=== PATIENT | male | born 1980 | race Hispanic/Latino ===

== ENCOUNTER 2019-03-24 20:45 | Inpatient (IN) | payer SELFPAY ==
[~2019-03-24 20:45] MED LIST: ISOVUE-370 76%-LOCM 1 ML ONE
[2019-03-24 21:07] LABS: #Basophils 0.1 thou/uL (0.0-0.2); #Eosinphils 0.3 thou/uL (0.0-0.7); #Lymphocytes 4.1 thou/uL (1.20-3.40); #Monocytes 1.2 thou/uL (0.11-0.59); #Neutrophils 10.7 thou/uL (1.40-6.50); %Basophils 0.5 % (0.0-1.0); %Lymphocytes 25.1 % (21.0-51.0); %Neutrophils 65.4 % (42.0-75.0); Hemoglobin 13.1 g/dL (14.0-18.0); Mean Corpuscular HGB CONC 35.2 g/dL (32.0-36.0); Mean Corpuscular Hemoglobin 29.8 pg (27.0-31.0); Mean Corpuscular Volume 84.6 fL (78.0-98.0); Mean Platelet Volume 7.8 fL (7.4-10.4); Platelet Count 333 thou/uL (130-400); RBC Distribution Width 11.6 % (11.5-14.5); Red Blood Cell (RBC) Count 4.41 mill/uL (4.70-6.10); White Blood Cell (WBC) Count 16.4 thou/uL (4.8-10.8)
--- NOTE | 2019-03-24 21:10 | RAD ---
Radiograph left humerus 2 views: DATE: 03/24/2019 Time: 8:59 PM HISTORY: 39-year-old male with severe traumatic pain due to fall from tree FINDINGS: Comminuted fracture of the proximal humeral metaphysis, with rotation, sharp angulation, and a signif icant anterior displacement, of the distal fragment (humeral diaphysis) relative to the proximal fragment (the comminuted humeral head). The mid and distal portions of the humerus are intact. IMPRESSION: Acute, traumatic, displaced, comminuted and angulated fracture of left humeral head and neck
[2019-03-24 21:12] LABS: Prothrombin Time 13.6 SEC (12.0-14.7)
[2019-03-24 21:13] LABS: PTT 28.6 SEC (22.9-36.1)
--- NOTE | 2019-03-24 21:15 | CT ---
CT BRAIN NONCONTRAST: DATE: 03/24/2019 HISTORY: 39-year-old male status post acute head trauma due to fall from tree. FINDINGS: There is no evidence of acute intra-axial or extra-axial hemorrhage. There is no midline shift or any other mass effect. There is no extra-axial fluid collection. There is no evidence of obstructive hydrocephalus. Calvarium is intact. IMPRESSION: No acute intracranial findings.
[2019-03-24] MEDS ORDERED: Ondansetron PF 4 MG/2 ML Vial ONE (21:17)
[2019-03-24] MEDS ORDERED: Adacel (T-DAP) 0.5 ML SYRINGE ONE (21:17)
--- NOTE | 2019-03-24 21:19 | CT ---
CT CERVICAL SPINE NONCONTRAST: DATE: 03/24/2019 HISTORY: 39-year-old male status post acute cervical trauma due to fall from tree. FINDINGS: There are no jumped or perched facets. There is no evidence of acute fracture. The vertebral body hei ghts are maintained. There is no prevertebral soft tissue swelling. IMPRESSION: No evidence of acute fracture or acute traumatic subluxation.
[2019-03-24 21:26] LABS: ALT (SGPT) 35 U/L (8-55); AST (SGOT) 47 U/L (5-34); Albumin 4.4 g/dL (3.5-5.0); Alkaline Phosphatase 88 U/L (40-150); Anion Gap 15 mmol/L (10-20); BUN (Urea Nitrogen) 20 mg/dL (8.9-20.6); Bilirubin, Total 0.2 mg/dL (0.2-1.2); Calc. Creatinine Clearance 0 mL/min (70-130); Calcium 8.5 mg/dL (7.8-10.44); Carbon Dioxide 20 mmol/L (22-29); Chloride 108 mmol/L (98-107); Estimated GFR-MDRD 88; Globulin 2.8 g/dL (2.4-3.5); Glucose 128 mg/dL (70-105); Potassium 3.5 mmol/L (3.5-5.1); Protein, Total 7.2 g/dL (6.0-8.3); Sodium 139 mmol/L (136-145)
--- NOTE | 2019-03-24 21:31 | CT ---
CT THORAX WITH CONTRAST CT ABDOMEN WITH CONTRAST CT PELVIS WITH CONTRAST CT THORACIC SPINE WITH CONTRAST CT LUMBAR SPINE WITH CONTRAST: (Trauma protocol) DATE: 03/24/2019 HISTORY: Trauma to the chest, abdomen, and pelvis due to fall from tree in 39-year-old male. Dr. Madrid verbally gave the level 2 trauma results of the CTs of the brain, C-spine, chest, abdomen, an d pelvis, to Dr. John Pike of the emergency Department at 9:26 PM on 03/24/2019. TECHNIQUE: IV administration of iodinated contrast media. No oral contrast media. Single phase scans of thorax, abdomen, and pelvis. Sagittal reconstructions of thoracic and lumbar spine. FINDINGS: Thoracic and lumbar spine: Burst fracture of L1 vertebral body with osseous retropulsion and approximately 50-75% maximum loss o f height anteriorly. No fracture of thoracic spine. Thorax: Comminuted and significantly displaced fracture of left humeral head, left humeral anatomical neck, a nd especially left humeral surgical neck. No dislocation of glenohumeral joint. No clavicular, rib, or sternal fracture. Nonspecific patchy hazy pulmonary densities throughout much of left lower lobe and some of left upper lobe, and to a lesser degree right lower lobe. No pneumothorax or pleural effusion. No thoracic aortic dissection, rupture, or aneurysm. No mediastinal hematoma. No pericardial effusion. Abdomen: Normal liver, abdominal aorta, kidneys, adrenals, pancreas, spleen, and appendix. No free fluid. No r etroperitoneal hematoma. Pelvis: No fracture identified. Small amount of fluid along the left posterior and posterior midline ischio r ectal fossa, including presacral space. The source of this is uncertain. Urinary bladder appears to be grossly intact. Large number of sigmoid colonic diverticula. No small bowel dilation. IMPRESSION: 1) acute, traumatic burst fracture of L1 with osseous retropulsion. 2) acute, traumatic, comminuted and significantly displaced fracture of left humeral head and neck. 3) small amount of fluid in the presacral space. Origin uncertain. 4) nonspecific mild hazy densities in the left lung.
[2019-03-24] MEDS ORDERED: Promethazine HCl 25 MG/ML VIAL ONE (21:54)
--- NOTE | 2019-03-24 22:08 | RAD ---
Radiograph left shoulder 2 views: DATE: 03/24/2019 Time: 9:29 PM HISTORY: 39-year-old male with acute, traumatic left shoulder pain due to fall from tree FINDINGS: Comminuted fracture involving left humeral head, including anatomical neck. Fracture of surgical neck of humerus, with significant anterior displacement of distal fragment, and angulation. No dislocation. IMPRESSION: Acute, traumatic, comminuted, displaced fracture of left humeral head and neck.
--- NOTE | 2019-03-24 22:46 | CON ---
DATE OF CONSULTATION: HISTORY OF PRESENT ILLNESS: The patient is a 39-year-old male, who presented to the emergency department per EMS after a fall from a tree. Reportedly, the patient was cutting a tree limb when he was hit by the limb, fell backward onto the ground approximately 15 feet. No LOC. He was complaining of left arm pain and low back pain. He was brought to the emergency department by EMS and was evaluated with trauma scans on arrival. CT of the chest, abdomen, and pelvis was notable for an L1 burst fracture with significant retropulsion. He is also found to have a left humeral head fracture. The patient denies any leg pain, numbness, tingling, weakness, or bowel bladder issues. His main complaint is back pain. I did use a sole buffer at the bedside during my evaluation of the patient. CT head and cervical spine were negative for acute injuries. PAST MEDICAL HISTORY: Reportedly otherwise healthy. Denies any other medical problems. PAST SURGICAL HISTORY: A cyst resection on the low back. SOCIAL HISTORY: The patient does not smoke, drink, or use any drugs. He lives at home with his family. ALLERGIES: HE HAS NO KNOWN DRUG ALLERGIES. REVIEW OF SYSTEMS: Per HPI. PHYSICAL EXAMINATION: VITAL SIGNS: BP is 139/106, pulse 73, respirations 16, temperature is 98.5. He is 94% on room air. CONSTITUTIONAL: Awake, alert, no acute distress. HEENT: Head, normocephalic and atraumatic. Eyes, PERRLA. Extraocular movements intact. ENT, oral mucosa is pink, intact, and moist. He has normal voice. NECK: Nontender to palpation. No meningismus or nuchal rigidity. RESPIRATORY: Symmetric chest expansion. No evidence of dyspnea. CARDIOVASCULAR: Regular rate and rhythm. MUSCULOSKELETAL: Limited range of motion of the left upper extremity secondary to pain. He has good strength throughout. Symmetric pulses. NEURO: He is A and O x4. No focal neurologic deficits are appreciated. ASSESSMENT: L1 burst fracture with retropulsion. PLAN: Plan to monitor the patient closely with q.1 neuro checks. The patient should be on strict spinal precautions until he is fitted with a TLSO brace. At this point, as I said, we will continue to monitor his neurologic exam closely, but if he remains neurologically intact, he may be able to be treated conservatively. We will keep him n.p.o. tonight, reassess tomorrow. I have discussed the plan with Dr. Good who is in agreement. Job ID: [id number]
[2019-03-24] MEDS ORDERED: Dextrose 50% Abboject 50 ML SYRINGE SLOW IVP PRN (23:05)
[2019-03-24] MEDS ORDERED: Dextrose 5% in Water 1,000 ML IV PRN (23:05)
[2019-03-24 23:07] VITALS: BMI 27.7
[2019-03-24] MEDS: Morphine 4 MG/ML VIAL SLOW IVP PRN (23:27)
[2019-03-24] MEDS: Sodium Chloride 0.9% 1,000 ML IV SCH (23:27)
--- NOTE | 2019-03-24 23:46 | HP ---
HISTORY OF PRESENT ILLNESS: Mr. Mccauley is a 39-year-old male who comes into the emergency room via EMS. History from the patient. The patient speaks Burkinan with translation with patient's relative. The patient reports he was climbing on a tree branch high, approximately 15 feet above a trailer, the branch broke. He fell on his back, landed on the trailer. After the fall, he has had pain on the left upper extremity and his mid back. En route EMS, the patient alert and awake. GCS 15. Vitals stable. No loss of consciousness and no neurology deficits. Upon arrival, the patient is alert and awake. Vital signs stable. Complains of pain of the left upper arm and midback. The patient was log-rolled for the CT scan and no other injury to other parts of his body were discovered. REVIEW OF SYSTEMS: Noncontributory except per HPI. PAST MEDICAL HISTORY: No past medical history. The patient reports he has been healthy. SURGICAL HISTORY: Skin cyst resection of lower back, possibly pilonidal cyst in 2004. SOCIAL HISTORY: The patient lives at home with family. The patient is doing remodel house. He denies alcohol use. He denies drug use. He has no smoking history. ALLERGIES: NO KNOWN DRUG ALLERGIES. CURRENT MEDICATIONS: None. PHYSICAL EXAMINATION: GENERAL: Patient lying down in bed, comfortable, complains of pain in the mid back. HEENT: Atraumatic. No bruising. No deformity. Pupils 3 mm, equal bilaterally , reactive to light. NECK: On C-collar. No tender to touch. CHEST: No deformity. Nontender to palpation. No bruising. LUNGS: Clear bilaterally. HEART: Regular rate and rhythm. ABDOMEN: Soft, nondistended. No bruising. Bowel sounds present. PELVIS: Stable. EXTREMITIES: Left upper extremity deformity, proximal humerus area and left shoulder swelling, extreme tender to palpation. Limited range of motion. Neurovascularly intact x4. NEUROLOGIC: No focal neurology deficits. GCS 15. When I saw the patient, the patient already had confirmed L1 burst fracture on CT scan. I did not attempt to logroll and examine his back. DIAGNOSTIC DATA: Initial workup; CT scan showed acute traumatic burst fracture of L1 with osseous retropulsion. Abdominal CT scan shows small amount of fluid in the presacral space, uncertain origins. X-ray of upper extremity show comminuted and significant displaced fracture of left humerus head and neck. DIAGNOSES: 1. Status post fall with height approximately 15 feet. 2. L1 burst fracture. 3. Comminuted displaced of the left humerus head and neck. PLAN: Neurosurgery was notified. Recommended to admit the patient. Strict spinal precautions. Neuro check q.2 hours. Neurosurgery ordered TLSO brace for patient. Most likely, he will have it tomorrow. We will be conservative of humerus fracture and consult Orthopedics. Initiate pain control with IV. The patient will be put on n.p.o. in case of spine surgery in the future. Initiate non-pharmacology DVT prophylaxis. Initiate gastritis prophylaxis. Neuro check q.2 hours and patient will be admitted to IMCU. Dr. Moreland is notified. Job ID: [id number] MTDD
[2019-03-25] MEDS ORDERED: Acetaminophen 1,000 MG in Premix Bag 1 BAG IVPB PRN (03:00)
[2019-03-25] MEDS: Morphine 4 MG/ML VIAL SLOW IVP PRN ×4 (04:06→21:30)
[2019-03-25] MEDS: Sodium Chloride 0.9% 1,000 ML IV SCH ×3 (04:06→23:28)
[2019-03-25] MEDS: Ondansetron PF 4 MG/2 ML Vial IVP PRN ×2 (04:07→21:30)
[2019-03-25 05:17] LABS: #Lymphocytes 0.7 thou/uL (1.20-3.40); #Monocytes 0.9 thou/uL (0.11-0.59); #Neutrophils 12.4 thou/uL (1.40-6.50); %Basophils 0.1 % (0.0-1.0); %Eosinophils 0.2 % (0.0-10.0); %Lymphocytes 4.9 % (21.0-51.0); %Monocytes 6.6 % (0.0-10.0); %Neutrophils 88.2 % (42.0-75.0); Hemoglobin 11.8 g/dL (14.0-18.0); Mean Corpuscular HGB CONC 34.9 g/dL (32.0-36.0); Mean Corpuscular Hemoglobin 29.7 pg (27.0-31.0); Platelet Count 258 thou/uL (130-400); RBC Distribution Width 11.7 % (11.5-14.5); Red Blood Cell (RBC) Count 3.99 mill/uL (4.70-6.10)
[2019-03-25 05:34] LABS: Anion Gap 15 mmol/L (10-20); BUN (Urea Nitrogen) 15 mg/dL (8.9-20.6); Calc. Creatinine Clearance 150 mL/min (70-130); Calcium 8.4 mg/dL (7.8-10.44); Carbon Dioxide 19 mmol/L (22-29); Chloride 109 mmol/L (98-107); Estimated GFR-MDRD Greater than 90; Glucose 124 mg/dL (70-105); Potassium 3.9 mmol/L (3.5-5.1); Sodium 139 mmol/L (136-145)
[2019-03-25 07:51] LABS: Phosphorus 4.3 mg/dL (2.3-4.7)
--- NOTE | 2019-03-25 08:39 | CON ---
DATE OF CONSULTATION: 03/25/2019 This is Mari Cottrell PA-C dictating a report for Ritchie Gillespie MD. REQUESTING PHYSICIAN: Trauma Services. CONSULTING PHYSICIAN: Ritchie Gillespie MD REASON FOR CONSULTATION: Left proximal humerus fracture. HISTORY OF PRESENT ILLNESS: This is a 39-year-old male, who presented to the emergency room by way of EMS after a fall from a tree branch approximately 15 feet in the air. Per the patient's history, he was climbing a tree when a tree branch broke and he landed on a trailer, which was positioned below the tree. Upon further workup in the ER, the patient was found to have an L1 burst fracture as well as a proximal humerus fracture. He is in the [facility] at this time and history is provided by way of family at bedside, who serve as a central station operator with the patient. He currently denies any numbness or tingling. He is right-hand dominant. No head injury or loss of consciousness at the time of the fall. PAST MEDICAL HISTORY: The patient denies. PAST SURGICAL HISTORY: Skin cyst resection on the lower back possibly pilonidal cyst back in 2004. SOCIAL HISTORY: The patient lives at home with family. He denies alcohol, tobacco, or drug use. He is working on remodeling a house. ALLERGIES: NO KNOWN DRUG ALLERGIES. REVIEW OF SYSTEMS: A 10-point review of systems conducted and otherwise negative except for stated above. PHYSICAL EXAMINATION: VITAL SIGNS: Shows current vital signs including a temperature of 98.7, blood pressure 123/69, pulse of 87, and a respiratory rate of 16. GENERAL: The patient is lying supine in bed. He is in [place] collar and temporary brace on at this time. He appears comfortable. He is in no apparent distress. Family at bedside. HEENT: Head is normocephalic and atraumatic. NECK: Currently in an [place] collar. LUNGS: Breathing is nonlabored. EXTREMITIES: The patient is able to wiggle his toes in his lower extremities. Sensation intact distally. Left upper extremity noted to be in a sling. Sensation intact over the humeral head. Distal neurovascular status intact in the left hand. RADIOGRAPHIC DATA: Radiographic data, which is reviewed at this time with Dr. Gillespie shows evidence of a left proximal humerus fracture. This appears displaced involving the head and the neck. There appears to be displacement anteriorly with angulation. ASSESSMENT: Status post 15 foot fall with left proximal humerus fracture as well as L1 burst fracture. PLAN: At this time, the patient has been seen by Neurosurgery. Their plan appears to be conservative management with a TLSO. We will wait until the patient obtains his TLSO, so that he may go to surgery and be seated in a beach chair position for open reduction and internal fixation of this left proximal humerus fracture. This will likely be planned for tomorrow for surgical intervention once the brace is fitted today. We will plan for n.p.o. after midnight. Surgery will be discussed in more detail with family once the brace arrives. Job ID: [id number]
[2019-03-25] MEDS ORDERED: CEFAZOLIN 2 GM in Premix Bag 1 BAG IVPB SCH (08:45)
[2019-03-25] MEDS ORDERED: Pantoprazole 40 MG VIAL IVP SCH (09:00)
[2019-03-25] MEDS ORDERED: Acetaminophen 500 MG TAB PO PRN (10:01)
[2019-03-25] MEDS: Famotidine/PF 20 mg/2ml Vial SLOW IVP SCH ×2 (10:59→20:41)
[2019-03-25] MEDS: Polyethylene Glycol 3350 17 GM Packet PO SCH (11:01)
[2019-03-25] MEDS: Senokot S 8.6-50 MG TAB PO SCH ×2 (11:02→20:41)
[2019-03-25] MEDS: Acetaminophen 1,000 MG in Premix Bag 1 BAG IVPB SCH ×3 (13:25→23:28)
--- NOTE | 2019-03-25 16:54 | PRG ---
DATE OF SERVICE: 03/25/2019 SUBJECTIVE: The patient was seen and examined. I agree with Chanel Wilkins's evaluation, 03/24/2019. The patient is a 39-year-old man, who was injured in a fall. He had a fractured humerus and was also identified to have an L1 burst fracture. He was complaining of back pain, but has no definitive neurologic deficit in the legs. The patient does not speak Luxembourgish and history and exam is obtained through the use of a family member. CT scan reveals an L1 burst fracture with substantial retropulsion, but minimal kyphotic change. IMPRESSION AND PLAN: The patient has a significant L1 burst fracture. We will try to treat this conservatively in a TLSO brace, but there is some risk of failure with this treatment, and ultimately requiring surgical stabilization at a later date. I have discussed this at length with the patient and his family. We will need strict TLSO bracing while in bed and while upright, but in the TLSO brace, he can gradually be mobilized. Head CT and cervical spine CT were negative. Job ID: [id number]
[2019-03-25] MEDS ORDERED: traMADol HCl 50 MG TAB PO PRN ×2 (16:58)
--- NOTE | 2019-03-25 23:27 | PRG ---
DATE OF SERVICE: 03/25/2019 SUBJECTIVE: This is a 39-year-old gentleman, who sustained a fall approximately 15 feet. The patient is awake, alert, in no distress, with TLSO brace in place. The patient reports that his pain is well controlled at this time. The patient is tolerating a regular diet. The patient voices no complaints or concerns at this time. OBJECTIVE: VITAL SIGNS: Stable, the patient remains afebrile. GENERAL: The patient is awake, alert, in no distress. Appears comfortable, in hospital bed with TLSO brace in place. RESPIRATORY: Equal chest rise and fall, no respiratory distress. EXTREMITIES: Moves all extremities, positive distal pulses, left upper extremity in a sling. ASSESSMENT: 1. Status post fall approximately 15 feet. 2. L1 fracture. 3. Comminuted displaced left humerus head and neck fracture. PLAN: Continue supportive care. Continue pain regimen. Continue TLSO brace per Neurosurgery recommendations. The patient will be placed n.p.o. after midnight for repair of his left humeral head fracture. The plan was discussed with the patient and family who agree. Job ID: [id number]
[2019-03-26] MEDS: Morphine 4 MG/ML VIAL SLOW IVP PRN ×2 (02:58→19:35)
[2019-03-26] MEDS: Ondansetron PF 4 MG/2 ML Vial IVP PRN (03:09)
[2019-03-26] MEDS: Acetaminophen 1,000 MG in Premix Bag 1 BAG IVPB SCH (05:45)
[2019-03-26] MEDS: Sodium Chloride 0.9% 1,000 ML IV SCH (05:46)
[2019-03-26 06:29] LABS: #Eosinphils 0.1 thou/uL (0.0-0.7); #Lymphocytes 1.3 thou/uL (1.20-3.40); #Monocytes 1.3 thou/uL (0.11-0.59); #Neutrophils 9.8 thou/uL (1.40-6.50); %Basophils 0.2 % (0.0-1.0); %Eosinophils 0.5 % (0.0-10.0); %Lymphocytes 10.5 % (21.0-51.0); %Neutrophils 78.7 % (42.0-75.0); Hemoglobin 11.3 g/dL (14.0-18.0); Mean Corpuscular HGB CONC 34.3 g/dL (32.0-36.0); Mean Corpuscular Hemoglobin 29.3 pg (27.0-31.0); Mean Corpuscular Volume 85.5 fL (78.0-98.0); Mean Platelet Volume 8.1 fL (7.4-10.4); Platelet Count 228 thou/uL (130-400); RBC Distribution Width 11.8 % (11.5-14.5); Red Blood Cell (RBC) Count 3.86 mill/uL (4.70-6.10); White Blood Cell (WBC) Count 12.5 thou/uL (4.8-10.8)
--- NOTE | 2019-03-26 06:33 | PRG ---
DATE OF SERVICE: SUBJECTIVE: Patient is two days status post injury after a fall from a tree resulting in L1 burst fracture with retropulsion. Yesterday, he was fitted with a TLSO brace which he has been instructed to wear at all times. He also has a left proximal humerus fracture. There are plans for surgical repair by Orthopedics later today. Patient has had no overnight issues. He is still complaining of back pain and getting p.r.n. morphine for this. However, he denies any leg pain, numbness, tingling, weakness, bowel or bladder issues. OBJECTIVE: GENERAL: On exam this morning, patient is awake, alert, in no acute distress. His brace appears to be fitting appropriately. EXTREMITIES: He has free active range of motion of all extremities. No focal motor weakness. No reflex asymmetry. Sensation is intact to light touch. PLAN: To continue conservative course of treatment at this time with close monitoring for his L1 burst fracture. Patient should wear the TLSO brace at all times. He is okay for surgery with regard to his left proximal humerus as long as he is wearing the brace. He can also begin to mobilize with the brace. We will continue to follow along closely. Job ID: [id number]
[2019-03-26 06:53] LABS: Anion Gap 12 mmol/L (10-20); BUN (Urea Nitrogen) 12 mg/dL (8.9-20.6); Calc. Creatinine Clearance 165 mL/min (70-130); Calcium 8.3 mg/dL (7.8-10.44); Carbon Dioxide 22 mmol/L (22-29); Chloride 107 mmol/L (98-107); Estimated GFR-MDRD Greater than 90; Glucose 115 mg/dL (70-105); Phosphorus 1.9 mg/dL (2.3-4.7); Potassium 3.6 mmol/L (3.5-5.1); Sodium 137 mmol/L (136-145)
[2019-03-26] MEDS ORDERED: Potassium Phosphate 30 MMOL in Sodium Chloride 0.9% 250 ML 250 ML IVPB SCH (07:45)
[2019-03-26] MEDS: Famotidine/PF 20 mg/2ml Vial SLOW IVP SCH ×2 (09:29→21:24)
[2019-03-26] MEDS: Acetaminophen 500 MG TAB PO SCH ×3 (09:29→18:51)
[2019-03-26] MEDS: Polyethylene Glycol 3350 17 GM Packet PO SCH (09:30)
[2019-03-26] MEDS: Senokot S 8.6-50 MG TAB PO SCH ×2 (09:30→21:25)
[2019-03-26] MEDS ORDERED: Fentanyl 100 MCG/2 ML VIAL ONE ×3 (11:50→15:55)
[2019-03-26] MEDS ORDERED: Bupivacaine HCl 0.5%/Epinephrine 1:200,000/PF 30 ml Vial ONE (12:06)
[2019-03-26] MEDS ORDERED: ePHEDrine 50 MG/ML VIAL ONE (12:11)
[2019-03-26] MEDS ORDERED: PROPOFOL 200 MG/20 ML VIAL ONE (12:11)
[2019-03-26] MEDS ORDERED: Lidocaine 1% PF 5 ML VIAL ONE (12:11)
[2019-03-26] MEDS ORDERED: Rocuronium Bromide 10 MG/ML (10ML VIAL) ONE (12:11)
[2019-03-26] MEDS ORDERED: Midazolam HCl 2 mg/2 ml Vial ONE (13:06)
[2019-03-26] MEDS ORDERED: Albumin 25% 200 ML ONE (14:57)
[2019-03-26] MEDS ORDERED: Promethazine HCl 25 MG/ML VIAL SLOW IVP PRN (15:52)
[2019-03-26] MEDS ORDERED: Ondansetron HCl/PF 4 MG/2 ML Vial IVP PRN (15:52)
[2019-03-26] MEDS ORDERED: Promethazine HCl 25 MG/ML VIAL IM PRN (15:52)
--- NOTE | 2019-03-26 16:35 | PRG ---
DATE OF SERVICE: 03/26/2019 SUBJECTIVE: The patient was seen this morning during rounds. He had his TLSO brace in place, who is fitting appropriately. The patient reported he had no pain. He is going to the OR today with Orthopedic Surgery for fixation of his left humeral head and neck fractures. He is n.p.o. and was tolerating a regular diet yesterday. OBJECTIVE: VITAL SIGNS: Temperature 98.7, pulse 99, respirations 19, oxygen saturation 93% on room air, and blood pressure 151/95. GENERAL: Well-appearing middle-aged male, sitting up in bed with TLSO in place with no signs of acute distress. PULMONARY: Equal chest rise and fall. Clear breath sounds bilaterally. No signs of acute respiratory distress. CARDIAC: Regular rate and rhythm. No murmurs, gallops, or rubs. GI: Abdomen is soft, nontender, and nondistended. EXTREMITIES: 2+ pulses in all extremities. No significant swelling noted. Left upper extremity sling is in place. NEUROLOGIC: GCS is 15. Gross motor and sensation are intact. No focal neurological deficits. LABORATORY FINDINGS: White count 12.5, hemoglobin 11.3, hematocrit 33.0, platelets 228. INR 1.0. Sodium 137, potassium 3.6, chloride 107, carbon dioxide 22, BUN 12, creatinine 0.69, glucose 115, phosphorus 1.9, and magnesium 2.0. DIAGNOSTIC FINDINGS: There are no new diagnostic findings to report. ASSESSMENT: 1. Status post mechanical fall 15 feet. 2. L1 burst fracture. 3. Left-sided humeral head and neck fracture. 4. Hypokalemia. 5. Hypophosphatemia. PLAN: The patient will continue to be n.p.o. for now with normal saline at 120 an hour. He is to go to the OR today with Orthopedic Surgery for fixation of his left humeral head and neck fractures. Postoperatively, the patient will start to mobilize with physical and occupational therapy. We will replace his potassium and phosphorus as well. The patient is uninsured and would benefit from rehab placement, but he will likely be discharged home. The patient was seen and examined by Dr. Gonzáles and myself this morning during rounds. Job ID: [id number]
[2019-03-26] MEDS: Cyclobenzaprine 10 MG TAB PO PRN (18:02)
[2019-03-26] MEDS ORDERED: Enoxaparin Sodium 30 MG/0.3 ML SYRINGE SC SCH (21:00)
[2019-03-26] MEDS: CEFAZOLIN 2 GM in Premix Bag 1 BAG IVPB SCH (21:28)
[2019-03-26] MEDS: traMADol HCl 50 MG TAB PO SCH (22:07)
--- NOTE | 2019-03-26 22:49 | PRG ---
DATE OF SERVICE: 03/26/2019 SUBJECTIVE: The patient remains on the surgical floor. The patient is awake, alert, lying in hospital bed with TLSO brace in place, which is fitting appropriately. The patient with multiple family members at bedside and family to translate. The patient reports mild left humerus pain. Dressing is clean, dry, and intact. The patient does report a decreased appetite, but denies any nausea or vomiting at this time. The patient was taken to the OR earlier today, but was unable to fix his left humeral head fracture. OBJECTIVE: VITAL SIGNS: Stable. The patient remains afebrile. GENERAL: Well-appearing, middle-aged male, sitting up in bed, with TLSO brace in place, no acute distress. PULMONARY: Equal chest rise and fall. Bilateral breath sounds clear. EXTREMITIES: Moves all extremities. Left upper extremity with clean, dry, intact bandage and sling in place. ASSESSMENT: 1. Status post mechanical fall 15 feet. 2. L1 burst fracture. 3. Left-sided humeral head and neck fracture. 4. Hypokalemia. 5. Hypophosphatemia. PLAN: Continue regular diet. We will increase the patient's pain regimen and add gabapentin as the patient has reported increased pain. Orthopedic Surgery plans to take the patient back to the OR on Sunday for a joint replacement, left upper extremity. We will continue to have Physical and Occupational Therapy work with the patient. We will continue to monitor electrolytes. The plan was discussed with the patient and family, who agrees. Job ID: [id number]
[2019-03-27] MEDS: Cyclobenzaprine 10 MG TAB PO PRN ×2 (02:03→23:49)
[2019-03-27] MEDS: Acetaminophen 500 MG TAB PO SCH ×4 (02:03→20:39)
[2019-03-27] MEDS: Morphine 4 MG/ML VIAL SLOW IVP PRN ×5 (02:07→20:40)
[2019-03-27] MEDS: traMADol HCl 50 MG TAB PO SCH ×4 (02:57→20:45)
[2019-03-27 05:15] LABS: #Basophils 0.1 thou/uL (0.0-0.2); #Eosinphils 0.1 thou/uL (0.0-0.7); #Lymphocytes 1.3 thou/uL (1.20-3.40); #Monocytes 1.2 thou/uL (0.11-0.59); #Neutrophils 8.4 thou/uL (1.40-6.50); %Basophils 0.6 % (0.0-1.0); %Eosinophils 1.1 % (0.0-10.0); %Lymphocytes 11.6 % (21.0-51.0); %Monocytes 10.9 % (0.0-10.0); %Neutrophils 75.9 % (42.0-75.0); Hemoglobin 10.1 g/dL (14.0-18.0); Mean Corpuscular HGB CONC 34.6 g/dL (32.0-36.0); Mean Corpuscular Hemoglobin 29.5 pg (27.0-31.0); Mean Corpuscular Volume 85.3 fL (78.0-98.0); Mean Platelet Volume 7.9 fL (7.4-10.4); Platelet Count 209 thou/uL (130-400); RBC Distribution Width 11.6 % (11.5-14.5); White Blood Cell (WBC) Count 11.1 thou/uL (4.8-10.8)
[2019-03-27 05:37] LABS: Anion Gap 11 mmol/L (10-20); BUN (Urea Nitrogen) 9 mg/dL (8.9-20.6); Calc. Creatinine Clearance 163 mL/min (70-130); Calcium 8.4 mg/dL (7.8-10.44); Carbon Dioxide 25 mmol/L (22-29); Chloride 103 mmol/L (98-107); Estimated GFR-MDRD Greater than 90; Glucose 107 mg/dL (70-105); Phosphorus 2.9 mg/dL (2.3-4.7); Potassium 3.6 mmol/L (3.5-5.1); Sodium 135 mmol/L (136-145)
[2019-03-27] MEDS: CEFAZOLIN 2 GM in Premix Bag 1 BAG IVPB SCH ×2 (06:32→13:31)
[2019-03-27] MEDS ORDERED: Potassium Phosphate 15 MMOL in Sodium Chloride 0.9% 250 ML 250 ML IVPB SCH (07:45)
[2019-03-27] MEDS: Senokot S 8.6-50 MG TAB PO SCH ×2 (08:26→20:40)
[2019-03-27] MEDS: Famotidine/PF 20 mg/2ml Vial SLOW IVP SCH ×2 (08:26→20:40)
[2019-03-27] MEDS: Gabapentin 300 MG CAP PO SCH ×3 (08:26→20:40)
[2019-03-27] MEDS: traMADol HCl 50 MG TAB PO PRN ×3 (08:27→23:49)
[2019-03-27] MEDS: Polyethylene Glycol 3350 17 GM Packet PO SCH (08:28)
[2019-03-27] MEDS: Enoxaparin Sodium 30 MG/0.3 ML SYRINGE SC SCH ×2 (08:28→20:41)
--- NOTE | 2019-03-27 11:53 | PRG ---
DATE OF SERVICE: 03/27/2019 SUBJECTIVE: The patient was seen this morning, sitting up in bed. He is postoperative day #1 after attempted fixation of the left femoral head fracture. Orthopedic Surgery reported they were not able to fix his injury, and he will need a left shoulder joint replacement, which is scheduled for tomorrow. The patient has his TLSO brace that is fitting appropriately. He has not been up out of bed yet today. He is otherwise tolerating a regular diet. He has not had bowel movements, but he is voiding without difficulties. He is open to working with physical therapy. Pain is well controlled. Has no complaints at the time of my evaluation. OBJECTIVE: VITAL SIGNS: Temperature 98.6, pulse 97, respirations 16, oxygen saturation 99% on room air, and blood pressure 137/89. GENERAL: Well-appearing, middle-aged male, sitting up in bed with no signs of acute distress. The TLSO was in place. PULMONARY: Equal chest rise and fall. Clear breath sounds bilaterally. No signs of acute respiratory distress. CARDIAC: Regular rate and rhythm. No murmurs, gallops, or rubs. GI: Abdomen is soft, nontender, nondistended. EXTREMITIES: 2+ pulses in all extremities. No significant swelling noted in lower extremities. There is some swelling and bruising of the left shoulder. Left upper extremity is in a sling with surgical bandages over left shoulder. NEUROLOGIC: GCS is 15. Gross motor and sensation are intact. LABORATORY FINDINGS: White count 11.1, hemoglobin 10.1, hematocrit 29.0, and platelets 209. Sodium 135, potassium 3.6, chloride 103, carbon dioxide 25, BUN 9, creatinine 0.70, glucose is 107, phosphorus 2.9, and magnesium 2.0. DIAGNOSTIC FINDINGS: There are no new diagnostic findings to report. ASSESSMENT: 1. Status post mechanical fall, 15 feet from a tree. 2. L1 burst fracture, non-op. 3. Left-sided humeral head and neck fracture. 4. Acute hypokalemia and hypophosphatemia. PLAN: The patient is to get up and work and walk with physical and occupational therapy. He is to be up in a chair as much as possible. He will go to the OR with Orthopedic Surgery tomorrow for joint replacement of his left shoulder. He will be n.p.o. after midnight with normal saline at 100 an hour. We will also hold his Lovenox at that time in preparation for the OR. He will receive potassium and phosphorus, electrolyte replacement. The patient is uninsured and will likely go home with family assistance when he is ready for discharge. Job ID: [id number]
--- NOTE | 2019-03-27 21:46 | PRG ---
DATE OF SERVICE: 03/27/2019 SUBJECTIVE: The patient remains on the surgical floor. The patient is awake, alert, in no distress. The patient is postop day #2 after attempted fixation of the left femoral head fracture. The patient remains in a TLSO brace. The patient's pain is well controlled at this time. The patient's dressing to the left shoulder is clean, dry, and intact. The patient's appetite is improved. OBJECTIVE: VITAL SIGNS: Stable. The patient remains afebrile. GENERAL: Well-appearing, middle-aged male, lying in hospital bed in TLSO brace , in no acute distress. PULMONARY: Equal chest rise and fall of chest. No respiratory distress. EXTREMITIES: Moves all extremities, left upper extremity in a sling and bandage is clean, dry, and intact. ASSESSMENT: 1. Status post mechanical fall, 15 feet from a tree. 2. L1 burst fracture, nonoperative. 3. Left-sided humeral head and neck fracture. 4. Acute hypokalemia and hypophosphatemia. PLAN: Continue supportive care and pain regimen. Continue to have Physical and Occupational Therapy work with the patient. Encourage the patient to sit up in the chair as much as possible. The patient will be n.p.o. after midnight for orthopedic surgery for joint replacement of his left shoulder. The patient will be placed on maintenance fluids overnight. The patient's Lovenox will be held tomorrow morning then restarted after OR. The plan was discussed with the patient, who agrees. Job ID: [id number] MTDD
[2019-03-27] MEDS: Sodium Chloride 0.9% 1,000 ML IV SCH (23:50)
[2019-03-28] MEDS: Morphine 4 MG/ML VIAL SLOW IVP PRN (00:45)
[2019-03-28] MEDS: Acetaminophen 500 MG TAB PO SCH ×4 (00:45→20:15)
[2019-03-28] MEDS: traMADol HCl 50 MG TAB PO SCH ×4 (03:42→21:29)
[2019-03-28] MEDS ORDERED: hydrALAZINE 20 MG/ML VIAL SLOW IVP PRN (04:08)
[2019-03-28 05:46] LABS: #Basophils 0.1 thou/uL (0.0-0.2); #Eosinphils 0.3 thou/uL (0.0-0.7); #Lymphocytes 1.6 thou/uL (1.20-3.40); #Monocytes 1.4 thou/uL (0.11-0.59); #Neutrophils 8.1 thou/uL (1.40-6.50); %Basophils 0.7 % (0.0-1.0); %Eosinophils 2.9 % (0.0-10.0); %Lymphocytes 13.6 % (21.0-51.0); %Neutrophils 70.8 % (42.0-75.0); Hemoglobin 9.7 g/dL (14.0-18.0); Mean Corpuscular HGB CONC 34.5 g/dL (32.0-36.0); Mean Corpuscular Hemoglobin 29.8 pg (27.0-31.0); Mean Corpuscular Volume 86.4 fL (78.0-98.0); Mean Platelet Volume 8.2 fL (7.4-10.4); Platelet Count 235 thou/uL (130-400); RBC Distribution Width 11.6 % (11.5-14.5); Red Blood Cell (RBC) Count 3.25 mill/uL (4.70-6.10); White Blood Cell (WBC) Count 11.5 thou/uL (4.8-10.8)
[2019-03-28] MEDS ORDERED: Midazolam HCl 2 mg/2 ml Vial ONE (06:13)
[2019-03-28] MEDS ORDERED: Fentanyl 100 MCG/2 ML VIAL ONE ×2 (06:13→11:23)
[2019-03-28 06:34] LABS: Anion Gap 11 mmol/L (10-20); BUN (Urea Nitrogen) 12 mg/dL (8.9-20.6); Calc. Creatinine Clearance 181 mL/min (70-130); Calcium 8.5 mg/dL (7.8-10.44); Carbon Dioxide 25 mmol/L (22-29); Chloride 102 mmol/L (98-107); Estimated GFR-MDRD Greater than 90; Glucose 87 mg/dL (70-105); Magnesium 2.2 mg/dL (1.6-2.6); Phosphorus 1.8 mg/dL (2.3-4.7); Potassium 3.6 mmol/L (3.5-5.1); Sodium 134 mmol/L (136-145)
[2019-03-28] MEDS ORDERED: Potassium Phosphate 30 MMOL in Sodium Chloride 0.9% 500 ML IVPB SCH (06:45)
[2019-03-28] MEDS ORDERED: Chlorhexidine Gluconate 15 ML UDCUP SSP ONE (07:09)
[2019-03-28] MEDS ORDERED: Lidocaine 2% Jelly 5 ML TUBE ONE (07:56)
[2019-03-28] MEDS ORDERED: traMADol HCl 50 MG TAB PO PRN ×2 (08:13)
[2019-03-28] MEDS ORDERED: Promethazine HCl 25 MG/ML VIAL IM PRN ×2 (08:13→11:13)
[2019-03-28] MEDS ORDERED: HYDROcodone/Acetaminophen 5/325 mg Tablet PO PRN ×2 (08:13)
[2019-03-28] MEDS ORDERED: Zolpidem Tartrate 5 MG TAB PO PRN (08:13)
[2019-03-28] MEDS ORDERED: Ondansetron PF 4 MG/2 ML Vial IVP PRN (08:13)
[2019-03-28] MEDS ORDERED: Fentanyl 100 MCG/2 ML VIAL IV PRN (08:17)
[2019-03-28] MEDS ORDERED: Phenylephrine HCL 10 MG/ML VIAL ONE (08:59)
[2019-03-28] MEDS ORDERED: Neomycin-Polymyxin 1 ML AMP ONE (09:19)
[2019-03-28] MEDS: Famotidine/PF 20 mg/2ml Vial SLOW IVP SCH ×2 (09:32→20:16)
[2019-03-28] MEDS: Gabapentin 300 MG CAP PO SCH ×3 (09:32→20:16)
[2019-03-28] MEDS: Polyethylene Glycol 3350 17 GM Packet PO SCH (09:33)
[2019-03-28] MEDS: Senokot S 8.6-50 MG TAB PO SCH ×2 (09:33→20:16)
[2019-03-28] MEDS ORDERED: Ondansetron HCl/PF 4 MG/2 ML Vial IVP PRN (11:13)
[2019-03-28] MEDS ORDERED: Promethazine HCl 25 MG/ML VIAL SLOW IVP PRN (11:13)
[2019-03-28] MEDS: Sodium Chloride 0.9% 1,000 ML IV SCH (12:41)
[2019-03-28] MEDS: Ketorolac Tromethamine 30 MG/ML VIAL IVP SCH ×2 (12:42→18:10)
[2019-03-28] MEDS: CEFAZOLIN 2 GM in Premix Bag 1 BAG IVPB SCH ×2 (14:00→21:30)
[2019-03-28] MEDS ORDERED: Ropivacaine 0.5% HCl/PF (150 MG/30 ML VIAL) ONE (14:04)
[2019-03-28] MEDS ORDERED: Ropivacaine 0.2% HCl/PF (40 MG/20 ML VIAL) ONE (14:04)
[2019-03-28] MEDS ORDERED: PROPOFOL 200 MG/20 ML VIAL ONE (14:24)
[2019-03-28] MEDS ORDERED: Glycopyrrolate 0.2 MG/ML 5 ML SYRINGE ONE (14:24)
[2019-03-28] MEDS ORDERED: PHENYLEPHRINE-NS 100 MCG/ML 10 ML SYRINGE ONE (14:24)
[2019-03-28] MEDS ORDERED: Vecuronium 10 MG VIAL ONE (14:24)
[2019-03-28] MEDS ORDERED: Dexamethasone 20 MG/5 ML VIAL ONE (14:24)
[2019-03-28] MEDS ORDERED: Rocuronium Bromide 10 MG/ML (10ML VIAL) ONE (14:24)
[2019-03-28] MEDS ORDERED: Ondansetron PF 4 MG/2 ML Vial ONE (14:24)
--- NOTE | 2019-03-28 15:13 | PRG ---
DATE OF SERVICE: 03/28/2019 SUBJECTIVE: The patient was seen this afternoon postoperatively. He went to the OR today for a left shoulder joint replacement with Orthopedic Surgery after they were unable to reduce the fracture on March 26. Postoperatively, the patient is comfortable in bed and he reports that the block to his left shoulder is working appropriately and he has good pain control. He has not eaten anything since coming back from the OR, but he has ordered food and is waiting for it to arrive. He is also waiting to void. He worked with PT/OT yesterday and was able to ambulate to the hallway and back. We will continue working with him, with physical and occupational therapy. He denies any nausea, vomiting, or diarrhea. OBJECTIVE: VITAL SIGNS: Temperature 98.0, pulse 90, respirations 19, oxygen saturation 95% on room air, and blood pressure 159/66. GENERAL: Well-appearing middle-aged male, lying in bed with no signs of acute distress. PULMONARY: Equal chest rise and fall. Clear breath sounds bilaterally. No signs of acute respiratory distress. CARDIAC: Regular rate and rhythm. No murmurs, gallops, or rubs. GI: Abdomen is soft, nontender, nondistended. EXTREMITIES: 2+ pulses in all extremities. Some left-sided shoulder swelling. Left upper extremity is in a sling with surgical dressing in place. There is also a nerve block catheter in place. NEUROLOGIC: GCS is 15. TLSO brace fitting appropriately. LABORATORY FINDINGS: White count 11.5, hemoglobin 9.7, hematocrit 28.1, platelets 235. Sodium 134, potassium 3.6, chloride 102, carbon dioxide 25, BUN 12, creatinine 0.63, glucose 87, phosphorus 1.8, magnesium 2.2. DIAGNOSTIC FINDINGS: There are no new diagnostic findings to report. ASSESSMENT: 1. Status post mechanical fall 15 feet from a tree. 2. L1 burst fracture, nonoperative. 3. L1 humeral head and neck fracture, status post joint replacement. 4. Acute hypokalemia and hypophosphatemia. 5. Acute hyponatremia. PLAN: The patient is postoperative day 0 now. We will continue to work with Physical and Occupational Therapy. Continue current diet and pain control. Discontinue IV fluids. We will restart Lovenox for chemo DVT prophylaxis starting tomorrow. Replace phosphorus and potassium IV today. Continue to watch hyponatremia and we will consider free water restriction tomorrow if it does not stabilize or improve. The patient is uninsured and will need to be discharged home. He is not safe for discharge at this time. We will continue to evaluate him daily. Job ID: [id number]
--- NOTE | 2019-03-28 15:20 | RAD ---
EXAM: Left shoulder: 2 views INDICATIONS: Postop follow-up hemiarthroplasty COMPARISON: None. FINDINGS: Left shoulder prosthesis is been placed. Postop changes are noted.
--- NOTE | 2019-03-28 15:36 | OP ---
DATE OF PROCEDURE: 03/28/2019 OPERATION PERFORMED: Left shoulder hemiarthroplasty. PREOPERATIVE DIAGNOSIS: Comminuted left shoulder proximal humerus fracture. POSTOPERATIVE DIAGNOSIS: Comminuted left shoulder proximal humerus fracture. COMPLICATIONS: None. ESTIMATED BLOOD LOSS: 250 mL. CO-SURGEON: Ritchie Gillespie MD. IMPLANTS: Tornier hemiarthroplasty, AEQUALIS FLEX head, 46 x 17 mm low offset; FLEX REVIVE stem, 9 mm x 130 mm. INDICATIONS: Pasha is a 39-year-old male, who fell from a tree. He had a severe fracture of the proximal humerus. An attempt was made with open reduction and internal fixation; however, this was unsuccessful given the highly comminuted aspect of the fracture. He was indicated for hemiarthroplasty of the shoulder to hopefully restore function of the shoulder, relieve pain, and promote early use. Risks have been reviewed in detail. He has elected to proceed with the operation. DESCRIPTION OF PROCEDURE: Mr. Mccauley was identified in the preoperative holding area. His correct extremity was marked. He was carried to the operating room. He was positioned supine. General anesthesia was induced. A multidisciplinary time-out was performed. The left upper extremity was prepped and draped in sterile fashion. We began the procedure with a deltopectoral approach to the proximal humerus. We dissected down to the deltopectoral interval. At this point, we exposed the underlying shaft of the humerus as well as the comminution of the head and tuberosity fragments. We developed the planes around the greater and lesser tuberosities. Stay sutures were placed in these bony fragments. We then removed the broken humeral head fragments. We cleared the glenoid vault of any bony fragments. At this point, we delivered the humeral shaft. We prepared the humeral shaft appropriately with the sound in our broach. We trialed off this. We accept as a 9-mm stem. We had a good trial of reduction with adequate stability. The tuberosity fragments were in an anatomic position. At this point, we removed the trial components. We placed our final stem and humeral head. We again reduced the shoulder. We then began repair of the tuberosities using NICELOOP, these are #5 sutures. Multiple sutures were placed in the greater tuberosity, lesser tuberosity, and around the implant, restoring our anatomy of the tuberosities. We checked range of motion once more. There were no complications. We thoroughly irrigated with copious lavage. We then closed the superficial tissues. A sterile dressing was applied. The patient was taken to the recovery room in good condition without complication at this point. Job ID: [id number]
[2019-03-28] MEDS: Vancomycin HCl 1 GM in Premix Bag 1 BAG IVPB SCH (20:15)
--- NOTE | 2019-03-28 22:47 | PRG ---
DATE OF SERVICE: 03/28/2019 SUBJECTIVE: The patient remains on the surgical floor. The patient is postop day #0, status post left shoulder hemiarthroplasty. The patient is awake, alert, in no distress. Continues to have a block to the left upper extremity. The patient denies any pain at this time. The patient does report some mild back pain. The patient remains in a TLSO brace at this time. The patient denies any nausea, vomiting, and is able to tolerate a regular diet. OBJECTIVE: VITAL SIGNS: Stable. The patient remains afebrile. GENERAL: Well-appearing middle-aged male, lying in hospital bed, in no acute distress. PULMONARY: Equal chest rise and fall of chest, no respiratory distress, bilateral breath sounds clear. EXTREMITIES: 2+ pulses in all extremities, left shoulder dressing clean, dry, and intact. Nerve block catheter in place. NEUROLOGIC: GCS 15, TLSO brace fitting appropriately. No numbness or tingling, movement and sensation are intact. ASSESSMENT: 1. Status post mechanical fall 15 feet from a tree. 2. L1 burst fracture, nonoperative. 3. Left humeral head and neck fracture, status post joint replacement. 4. Acute hypokalemia and hypophosphatemia. 5. Acute hyponatremia. PLAN: Continue supportive care. Continue pain regimen. Regular diet as tolerated. Continue mechanical and chemical DVT prophylaxis. The plan has been discussed with the patient and family who agree. Job ID: [id number]
[2019-03-29] MEDS: Ketorolac Tromethamine 30 MG/ML VIAL IVP SCH ×5 (00:47→23:55)
[2019-03-29] MEDS: Acetaminophen 500 MG TAB PO SCH ×4 (00:48→20:38)
[2019-03-29] MEDS: traMADol HCl 50 MG TAB PO SCH ×4 (03:35→23:56)
[2019-03-29 04:40] LABS: #Eosinphils 0.1 thou/uL (0.0-0.7); #Lymphocytes 1.5 thou/uL (1.20-3.40); #Monocytes 1.4 thou/uL (0.11-0.59); #Neutrophils 7.2 thou/uL (1.40-6.50); %Basophils 0.2 % (0.0-1.0); %Eosinophils 0.8 % (0.0-10.0); %Lymphocytes 14.5 % (21.0-51.0); %Monocytes 13.4 % (0.0-10.0); %Neutrophils 71.1 % (42.0-75.0); Hemoglobin 8.5 g/dL (14.0-18.0); Mean Corpuscular HGB CONC 35.5 g/dL (32.0-36.0); Mean Corpuscular Hemoglobin 30.8 pg (27.0-31.0); Mean Corpuscular Volume 86.6 fL (78.0-98.0); Mean Platelet Volume 7.9 fL (7.4-10.4); Platelet Count 268 thou/uL (130-400); RBC Distribution Width 11.5 % (11.5-14.5); Red Blood Cell (RBC) Count 2.76 mill/uL (4.70-6.10); White Blood Cell (WBC) Count 10.1 thou/uL (4.8-10.8)
[2019-03-29 05:10] LABS: Anion Gap 12 mmol/L (10-20); BUN (Urea Nitrogen) 15 mg/dL (8.9-20.6); Calc. Creatinine Clearance 167 mL/min (70-130); Calcium 8.6 mg/dL (7.8-10.44); Carbon Dioxide 22 mmol/L (22-29); Chloride 103 mmol/L (98-107); Estimated GFR-MDRD Greater than 90; Glucose 96 mg/dL (70-105); Magnesium 2.3 mg/dL (1.6-2.6); Phosphorus 3.1 mg/dL (2.3-4.7); Potassium 4.1 mmol/L (3.5-5.1); Sodium 133 mmol/L (136-145)
[2019-03-29] MEDS: CEFAZOLIN 2 GM in Premix Bag 1 BAG IVPB SCH ×2 (05:14→13:32)
[2019-03-29] MEDS ORDERED: PHOS-NAK 1 PKT PACK PO SCH (08:00)
[2019-03-29] MEDS ORDERED: traMADol HCl 50 MG TAB PO PRN ×2 (08:03→08:05)
[2019-03-29] MEDS: Vancomycin HCl 1 GM in Premix Bag 1 BAG IVPB SCH ×2 (08:19→20:39)
[2019-03-29] MEDS: Enoxaparin Sodium 30 MG/0.3 ML SYRINGE SC SCH ×2 (08:19→20:39)
[2019-03-29] MEDS: Polyethylene Glycol 3350 17 GM Packet PO SCH (08:20)
[2019-03-29] MEDS: Gabapentin 300 MG CAP PO SCH ×3 (08:20→20:38)
[2019-03-29] MEDS: Famotidine/PF 20 mg/2ml Vial SLOW IVP SCH ×2 (08:20→20:38)
[2019-03-29] MEDS: Senokot S 8.6-50 MG TAB PO SCH ×2 (08:20→20:38)
--- NOTE | 2019-03-29 11:48 | PRG ---
DATE OF SERVICE: 03/29/2019 SUBJECTIVE: The patient was seen this morning, lying in bed with no signs of acute distress. He has nasal cannula oxygen, TLSO in place with left upper extremity in sling. The patient's at bedside reports the patient has significant pain in his back when he coughs. He has not been up out of bed yet today, but is ready to work with Occupational Therapy. He is pulling about 500 on his incentive spirometer and reports that the nurse has reviewed this with him earlier today. OBJECTIVE: VITAL SIGNS: Temperature 99.1, pulse 83, respirations 18, oxygen saturation 95% on 1 L nasal cannula, and blood pressure 126/79. GENERAL: Well-appearing middle-aged male, lying in bed with no signs of acute distress. PULMONARY: Equal chest rise and fall. Clear breath sounds bilaterally. No signs of acute respiratory distress. CARDIAC: Regular rate and rhythm. No murmurs, gallops, or rubs. GI: Abdomen is soft, nontender, nondistended. A TLSO brace in place. EXTREMITIES: 2+ pulses in all extremities. No significant swelling noted. Left upper extremity in sling with nerve block catheter in place. NEUROLOGIC: Gross motor and sensation are intact. GCS is 15. No focal neurological deficits. LABORATORY FINDINGS: White count 10.1, hemoglobin 8.5, hematocrit 23.9, and platelets 268. Sodium 133, potassium 4.1, chloride 103, carbon dioxide 22, BUN 15, creatinine 0.68, glucose 96, phosphorus 3.1, and magnesium 2.3. ASSESSMENT: 1. Status post mechanical fall 15 feet from a tree. 2. L1 burst fracture, non-op. 3. L1 humeral head and neck fracture, status post joint replacement. 4. Acute hypophosphatemia. 5. Hyponatremia. PLAN: We will increase the patient's pain regimen to tramadol 100 mg q.6 hours scheduled with additional scheduled and p.r.n. pain medications. He will work with Physical and Occupational Therapy today and get up out of bed. He also needs to sit up in the chair. He also needs to use his incentive spirometer. The patient was educated on the importance of these activities. Phosphorus was replaced. We will start a 1 L free water restriction for hyponatremia as well as encourage Gatorade. This was also discussed with the patient. The patient is uninsured, so he will have to wait until he is safe to be discharged home with his family. We will continue to work aggressively with him with PT and OT and educate the family until that time he will remain inpatient. Job ID: [id number]
[2019-03-29] MEDS ORDERED: traMADol HCl 50 MG TAB PO SCH (12:00)
--- NOTE | 2019-03-29 22:27 | PRG ---
DATE OF SERVICE: 03/29/2019 SUBJECTIVE: The patient remains on this surgical floor. The patient is postop day #1, status post left shoulder hemiarthroplasty. The patient is awake, and alert, in no distress. The patient continues to have a nerve block to the left upper extremity. The patient reports mild back pain with cough. The patient remained in a TLSO brace. The patient continues to tolerate a regular diet. OBJECTIVE: VITAL SIGNS: Stable, remains afebrile. ASSESSMENT: 1. Status post mechanical fall 15 feet from a tree. 2. L1 burst fracture, nonoperative. 3. Left humeral head and neck fracture, status post joint replacement. 4. Acute hypokalemia and hypophosphatemia. 5. Acute hyponatremia. PLAN: Continue supportive care. Continue to encourage the patient to ambulate and sit up in the chair more during the day. We will place the patient on a free water restriction to 1 L a day. We will encourage the patient to do pulmonary toilet and use his incentive spirometer. Continue mechanical and chemical DVT prophylaxis. Plan was discussed with the patient and family who agrees. Job ID: [id number]
[2019-03-30] MEDS: Acetaminophen 500 MG TAB PO SCH ×2 (03:23→08:01)
[2019-03-30 05:19] LABS: #Basophils 0.1 thou/uL (0.0-0.2); #Eosinphils 0.5 thou/uL (0.0-0.7); #Lymphocytes 1.7 thou/uL (1.20-3.40); #Monocytes 1.3 thou/uL (0.11-0.59); %Basophils 0.7 % (0.0-1.0); %Eosinophils 4.8 % (0.0-10.0); %Lymphocytes 18.1 % (21.0-51.0); %Monocytes 13.2 % (0.0-10.0); %Neutrophils 63.3 % (42.0-75.0); Hemoglobin 9.1 g/dL (14.0-18.0); Mean Corpuscular HGB CONC 34.1 g/dL (32.0-36.0); Mean Corpuscular Hemoglobin 29.8 pg (27.0-31.0); Mean Corpuscular Volume 87.3 fL (78.0-98.0); Platelet Count 298 thou/uL (130-400); RBC Distribution Width 11.7 % (11.5-14.5); Red Blood Cell (RBC) Count 3.05 mill/uL (4.70-6.10); White Blood Cell (WBC) Count 9.5 thou/uL (4.8-10.8)
[2019-03-30 05:45] LABS: Anion Gap 13 mmol/L (10-20); BUN (Urea Nitrogen) 13 mg/dL (8.9-20.6); Calc. Creatinine Clearance 173 mL/min (70-130); Calcium 8.6 mg/dL (7.8-10.44); Carbon Dioxide 22 mmol/L (22-29); Chloride 104 mmol/L (98-107); Estimated GFR-MDRD Greater than 90; Glucose 81 mg/dL (70-105); Magnesium 2.1 mg/dL (1.6-2.6); Phosphorus 3.3 mg/dL (2.3-4.7); Potassium 4.3 mmol/L (3.5-5.1); Sodium 135 mmol/L (136-145)
[2019-03-30] MEDS: Ketorolac Tromethamine 30 MG/ML VIAL IVP SCH (05:47)
[2019-03-30] MEDS: Ropivacaine HCl/PF 250 ML in Premix Bag 1 BAG NERVE BLCK SCH (05:47)
[2019-03-30] MEDS: traMADol HCl 50 MG TAB PO SCH (05:49)
[2019-03-30] MEDS ORDERED: PHOS-NAK 1 PKT PACK PO SCH (07:30)
[2019-03-30] MEDS: Polyethylene Glycol 3350 17 GM Packet PO SCH (07:59)
[2019-03-30] MEDS: Famotidine/PF 20 mg/2ml Vial SLOW IVP SCH ×2 (08:00→20:34)
[2019-03-30] MEDS: Gabapentin 300 MG CAP PO SCH ×3 (08:00→20:34)
[2019-03-30] MEDS: Enoxaparin Sodium 30 MG/0.3 ML SYRINGE SC SCH ×2 (08:00→20:34)
[2019-03-30] MEDS: Bisacodyl 10 MG SUPP PR SCH (08:01)
[2019-03-30] MEDS: Senokot S 8.6-50 MG TAB PO SCH ×2 (08:01→20:34)
[2019-03-30] MEDS ORDERED: Acetaminophen/Codeine 30-300mg Tablet PO PRN ×2 (10:08)
[2019-03-30] MEDS: Acetaminophen 325 MG TAB PO SCH ×3 (10:49→21:24)
[2019-03-30] MEDS: Ibuprofen 800 MG TAB PO SCH ×2 (10:49→17:30)
--- NOTE | 2019-03-30 11:07 | PRG ---
DATE OF SERVICE: 03/30/2019 SUBJECTIVE: The patient was seen this morning lying in bed with no signs of acute distress. The patient reports he did not get up out of bed yesterday, but was only able to sit up at the edge of the bed secondary to pain. Reports pain is better controlled when he is not mobile, but we did discuss the importance of moving around and sitting up in the chair. He agrees he is tolerating his diet. He is voiding, has not had a bowel movement, but has been refusing part of his bowel regimen. OBJECTIVE: VITAL SIGNS: Temperature 98.4, pulse 92, respirations 18, oxygen saturation 95% on room air, and blood pressure 128/84. GENERAL: Well-appearing middle-aged male, lying in bed with no signs of acute distress. PULMONARY: Equal chest rise and fall. Clear breath sounds bilaterally. No signs of acute respiratory distress. CARDIAC: Regular rate and rhythm. No murmurs, gallops, or rubs. GI: Abdomen is soft, nontender, and nondistended. TLSO is in place and fitting appropriately. EXTREMITIES: 2+ pulses in all extremities. No significant swelling noted. Left upper extremity with sling and nerve block catheter in place. NEUROLOGIC: GCS is 15. Gross motor and sensation are intact. No focal neurological deficits. Pupils are equal, round, and reactive to light bilaterally. LABORATORY FINDINGS: White count 9.5, hemoglobin 9.1, hematocrit 26.6, and platelets 298. Sodium 135, potassium 4.3, chloride 104, carbon dioxide 22, BUN 13, creatinine 0.66, phosphorus 3.3, and magnesium 2.1. DIAGNOSTIC FINDINGS: There are no new diagnostic findings to report. ASSESSMENT: 1. Status post mechanical fall 15 feet from a tree. 2. L1 burst fracture, nonoperative. 3. Left-sided humeral, head, and neck fracture, status post repair. 4. Hyponatremia, improving. 5. Hypophosphatemia. 6. Acute traumatic pain. PLAN: The patient will continue his current diet and 1 L free water restriction. We will discontinue scheduled tramadol and start Tylenol 3 p.r.n. We will also decrease the amount of scheduled Tylenol. The patient is receiving as did not exceed the 4 g maximum. The patient will receive a Dulcolax suppository daily until he has a bowel movement. We will replace phosphorus p.o. today. The patient is to work more aggressively with physical and occupational therapy with ambulation and sitting up in the chair. He will be ready for discharge when he shows that he is able to safely move around as he has no insurance and cannot go to a facility. The patient has good family support. Job ID: [id number]
--- NOTE | 2019-03-31 00:03 | PRG ---
DATE OF SERVICE: 03/30/2019 SUBJECTIVE: Patient remains on the surgical floor. The patient is awake, alert, sitting up in the chair, in no acute distress. Patient's pain seems to be better controlled at this time. The patient voices no complaints at this time. The patient is tolerating his diet. OBJECTIVE: VITAL SIGNS: Stable, afebrile. GENERAL: Well-appearing, middle-aged male, sitting up in chair, in no acute distress. PULMONARY: Equal chest rise and fall of chest, no respiratory distress. EXTREMITIES: 2+ pulses in all extremities, no significant swelling. Left upper extremity with sling and nerve block catheter in place. ASSESSMENT: 1. Status post mechanical fall, 15 feet from a tree. 2. L1 burst fracture, non-operative. 3. Left-sided humeral head and neck fracture, status post repair. 4. Hyponatremia, improving. 5. Hypophosphatemia. 6. Acute traumatic pain. PLAN: Continue current diet and free water restriction to 1 L a day. Continue Tylenol No. 3 as needed as tramadol was not controlling his pain. The patient still needs to have a bowel movement and has been placed on a bowel regimen. We will continue to have patient work with Physical and Occupational Therapy. Continue TLSO brace at all times. Job ID: [id number]
[2019-03-31] MEDS: Acetaminophen 325 MG TAB PO SCH ×4 (03:13→22:19)
[2019-03-31] MEDS: Ibuprofen 800 MG TAB PO SCH ×3 (03:13→19:29)
--- NOTE | 2019-03-31 07:00 | OP ---
DATE OF PROCEDURE: 03/26/2019 PREOPERATIVE DIAGNOSIS: Four-part proximal humerus fracture, displaced, left. POSTOPERATIVE DIAGNOSIS: Four-part proximal humerus fracture, displaced, left. PROCEDURE PERFORMED: Open exploration with attempted open reduction and internal fixation. ANESTHESIA: General. [employer]ER[employer]OB[employer] REPAIRER: Mari Cottrell PA-C ESTIMATED BLOOD LOSS: 200 mL. IMPLANTS: None. DRAINS: None. SPECIMEN: None. OUTCOME: Unrepairable left proximal humerus fracture and shoulder replacement equipment not present, as such the patient taken back to recovery with no hardware in place. INDICATIONS: The patient is a 39-year-old gentleman, status post fall from a tree from a height of approximately 15 feet, sustaining spine injury as well as severely comminuted left proximal humerus fracture. Preoperatively, I discussed with the patient that he had a severely comminuted fracture; however, given his young age, we decided to proceed with an attempted open reduction and internal fixation. I did discuss with the patient preoperatively that should this not be successful, then we would need to revise to a shoulder replacement of some sort. Informed consent has been obtained. I believe all questions answered. DESCRIPTION OF PROCEDURE: The patient was brought to the operating room and a time-out performed followed by induction of general anesthesia. The patient was placed in a semi-beach chair position with the head of the bed elevated approximately 30 degrees with care to position him so as not to provide any trunk flexion that would endanger his burst fracture. Once positioned, a sterile prep and drape was performed of the left upper extremity. Next, a deltopectoral approach to the proximal humerus was performed. After the skin was sharply incised, dissection was carried down bluntly exposing the fascia overlying the deltopectoral interval. The cephalic vein was identified superiorly and then this was traced inferiorly revealing the deltopectoral interval. Blunt dissection was used to further develop this interval with the cephalic pain kept laterally with the deltoid. Next, a retractor was placed under the deltoid, reflecting it laterally and gaining access to the proximal humeral shaft. Dissection was carried further proximally such that the lesser tuberosity could be identified. The conjoined tendon was protected with a retractor. Next, the very superior portion of the pectoralis was released off the humerus to provide for further mobilization of the proximal humerus. Next, palpation of the fragment showed a very large greater tuberosity fragment with what felt to be the posterior half of the humeral head attached to it with a somewhat large lesser tuberosity fragment as well. The lesser tuberosity was further complicated by severe comminution along the medial portion of the lesser tuberosity extending down towards the shaft. Stay sutures were attached to the lesser tuberosity and this could be mobilized and brought up towards the shaft. The head, however, was not able to be mobilized fully. Multiple attempts were made and this was found to be such a thin shell of bone, not really attached to anything except a portion of the greater tuberosity. Given the severe comminution of the calcar, the somewhat shell of the humeral head, it was felt that this really was not a reconstructible fracture. Unfortunately, we do not have the shoulder implants for a total shoulder or shoulder hemiarthroplasty in-house and as such, it was opted to proceed with an irrigation, debridement, and closure for a secondary procedure of hemiarthroplasty versus reverse shoulder. The shoulder was severely irrigated with normal saline and then closed with a simple layer of Vicryl and staple. Xeroform gauze and tape dressing was applied to the shoulder and then the patient was transferred to recovery room in stable condition. I did have a long conversation with the patient's family regarding the inability to repair the fracture and the need for a second procedure for arthroplasty. Job ID: [id number]
[2019-03-31] MEDS: Enoxaparin Sodium 30 MG/0.3 ML SYRINGE SC SCH ×2 (08:38→20:07)
[2019-03-31] MEDS: Senokot S 8.6-50 MG TAB PO SCH ×2 (08:39→20:08)
[2019-03-31] MEDS: Gabapentin 300 MG CAP PO SCH ×3 (08:39→20:08)
[2019-03-31] MEDS: Cyclobenzaprine 10 MG TAB PO PRN (08:39)
[2019-03-31] MEDS: Polyethylene Glycol 3350 17 GM Packet PO SCH (08:40)
[2019-03-31] MEDS: Bisacodyl 10 MG SUPP PR SCH (08:40)
[2019-03-31] MEDS: Famotidine/PF 20 mg/2ml Vial SLOW IVP SCH (08:40)
[2019-03-31] MEDS ORDERED: traMADol HCl 50 MG TAB PO PRN (09:25)
[2019-03-31] MEDS: HYDROcodone/Acetaminophen 10/325 mg Tablet PO SCH ×5 (11:20→23:56)
[2019-03-31] MEDS ORDERED: Calcium Carbonate 500 MG ChewTAB PO PRN (11:48)
--- NOTE | 2019-03-31 15:48 | PRG ---
DATE OF SERVICE: 03/31/2019 SUBJECTIVE: The patient was seen this morning, sitting up at the edge of the bed. He reported pain was about 6, previous scheduled Tylenol No. 3 started yesterday , had not significantly improved the patient's pain. He is tolerating a diet, working with Physical and Occupational Therapy. TLSO brace is in place and left upper extremity is in a sling. The patient had a bowel movement yesterday. OBJECTIVE: VITAL SIGNS: Temperature 98.9, pulse 83, respirations 16, oxygen saturation 94% on room air, blood pressure 125/82. GENERAL: Well-appearing middle-aged male, sitting up at edge of bed with no signs of acute distress. PULMONARY: Equal chest rise and fall. Clear breath sounds bilaterally. No signs of acute respiratory distress. CARDIAC: Regular rate and rhythm. No murmurs, gallops, or rubs. GI: Abdomen is soft, nontender, nondistended. EXTREMITIES: 2+ pulses in all extremities. No significant swelling noted. Gross motor and sensation are intact, left upper extremity with sling in place as well as catheter. NEUROLOGIC: GCS is 15. Gross motor and sensation are intact, TLSO brace fitting appropriately. No focal neurological deficits. LABORATORY FINDINGS: There are no new laboratory findings to discuss. DIAGNOSTIC FINDINGS: There are no new diagnostic findings to discuss. ASSESSMENT: 1. Status post fall 15 feet from tree. 2. L1 burst fracture, nonoperative. 3. Left humeral head and neck fracture, status post joint replacement. 4. Acute hyponatremia, improving. 5. Acute traumatic and postoperative pain, persistent. PLAN: The patient's Tylenol No. 3 will be discontinued. He will be placed on [place] 10 scheduled q.6 hours. He will also have p.r.n. tramadol for breakthrough pain. Continue other pain medications in conjunction with narcotics. Continue physical and occupational therapy. The patient is uninsured, so he will be discharged home when it is safe for him. The patient was seen and examined by Dr. Gonzáles and myself this morning during rounds. Job ID: [id number] [facility]
[2019-04-01] MEDS: Ibuprofen 800 MG TAB PO SCH ×3 (02:14→18:15)
[2019-04-01] MEDS: Ropivacaine HCl/PF 250 ML in Premix Bag 1 BAG NERVE BLCK SCH (03:01)
--- NOTE | 2019-04-01 04:08 | PRG ---
DATE OF SERVICE: 03/31/2019 SUBJECTIVE: The patient remains on the surgical floor. The patient is status post a fall, 15 feet from a tree. The patient is currently sleeping with TLSO brace in place and left upper extremity in sling. OBJECTIVE: VITAL SIGNS: Stable, afebrile. ASSESSMENT: 1. Status post fall, 15 feet from a tree. 2. L1 burst fracture, nonoperative. 3. Left humeral head and neck fracture, status post joint replacement. 4. Acute hyponatremia, improving. 5. Acute traumatic pain and postoperative pain, persistent. PLAN: Continue pain regimen with [place] 10, scheduled q.6 hours. Continue p.r.n. tramadol for breakthrough pain. Continue physical and occupational therapy. The patient is uninsured, so he will be discharged home when it is safe for him. Job ID: [id number]
[2019-04-01] MEDS: Acetaminophen 325 MG TAB PO SCH ×4 (04:48→23:01)
[2019-04-01] MEDS: HYDROcodone/Acetaminophen 10/325 mg Tablet PO SCH ×4 (05:34→23:01)
[2019-04-01] MEDS: Enoxaparin Sodium 30 MG/0.3 ML SYRINGE SC SCH ×2 (09:33→19:50)
[2019-04-01] MEDS: Senokot S 8.6-50 MG TAB PO SCH ×2 (09:34→19:50)
[2019-04-01] MEDS: Polyethylene Glycol 3350 17 GM Packet PO SCH (09:35)
[2019-04-01] MEDS: Bisacodyl 10 MG SUPP PR SCH (09:35)
[2019-04-01] MEDS: Gabapentin 300 MG CAP PO SCH ×3 (09:35→19:50)
--- NOTE | 2019-04-01 17:35 | PRG ---
DATE OF SERVICE: 04/01/2019 SUBJECTIVE: Mr. Mccaulye is a 39-year-old male, status post fall from 15 feet from a tree. He sustained L1 burst fracture, nonoperative with TLSO brace at all time; left humeral neck fracture, status post joint replacement; acute traumatic pain, persistent. The patient reports pain is well controlled. Pain is around 2-3/ 10. He is able to work with PT and OT. He walked around the floor. He gets up with assist and he can go to the restroom by himself. He tolerated regular diet. He developed no fever or shortness of breath. His vital signs have been stable. He has no complaints overnight. OBJECTIVE: GENERAL: The patient is lying down in bed, comfortable with no acute distress. VITAL SIGNS: This morning; temperature 99, heart rate 85, respiratory rate 18, O2 saturation 96% on room air, and blood pressure 117/75. LUNGS: Clear bilaterally. HEART: Regular rate and rhythm. ABDOMEN: Soft and nondistended. EXTREMITIES: Neurovascularly intact x4. NEUROLOGIC: No focal neurologic deficits. ASSESSMENT: 1. Status post fall from a tree. 2. L1 burst fracture, nonoperative with TLSO brace at all time. 3. Left humeral neck fracture, status post humerus joint replacement. 4. Acute traumatic pain, improved. PLAN: Continue pain control with L shoulder nerve block and norco. Continue supportive care. Continue gastritis and DVT prophylaxis. The patient is insurance unfunded, so the decision to go to rehab is difficult. We will consider discharge home tomorrow with consult with Physical Therapy. Job ID: [id number] [facility]
[2019-04-01] MEDS: Cyclobenzaprine 10 MG TAB PO PRN (19:50)
--- NOTE | 2019-04-02 00:54 | PRG ---
DATE OF SERVICE: 04/02/2019 SUBJECTIVE: The patient remains on the surgical floor. He is status post fall from a tree from about 15 feet. The sustained an L1 burst fracture that is being treated with a TLSO brace. The patient also sustained a left humeral neck fracture and has undergone a left shoulder hemiarthroplasty for this. He is postop day #6 from that procedure. The patient has been slow to progress with physical and occupational therapy, but has been making forward progress. He is tolerating a diet. His pain is controlled. OBJECTIVE: VITAL SIGNS: Stable. The patient is afebrile. GENERAL: The patient is resting comfortably in bed. He is awake, alert, conversant. He has 8 family members and friends around him in bed. LUNGS: Clear to auscultation bilaterally. HEART: Has regular rate and rhythm. ABDOMEN: Soft, flat, nontender. EXTREMITIES: Neurovascularly intact x4. Left upper extremity is immobilized with a sling. The patient does have his TLSO brace on at this time. ASSESSMENT/PLAN: 1. Status post 15 feet fall from tree. 2. L1 burst fracture, stable, treated in TLSO brace. 3. Postoperative day #6, status post left shoulder hemiarthroplasty. 4. Acute traumatic pain, improved. PLAN: Plan will be to continue supportive care. Encourage physical and occupational therapy. Due to the patient being uninsured, he will not be able to be discharged until it can be done so safely. Job ID: [id number]
[2019-04-02] MEDS: Ibuprofen 800 MG TAB PO SCH ×3 (01:21→17:50)
[2019-04-02] MEDS: Acetaminophen 325 MG TAB PO SCH ×3 (05:06→15:49)
[2019-04-02] MEDS: HYDROcodone/Acetaminophen 10/325 mg Tablet PO SCH ×3 (05:06→17:50)
[2019-04-02] MEDS: Senokot S 8.6-50 MG TAB PO SCH (09:51)
[2019-04-02] MEDS: Gabapentin 300 MG CAP PO SCH ×2 (09:51→15:49)
[2019-04-02] MEDS: Polyethylene Glycol 3350 17 GM Packet PO SCH (09:58)
[2019-04-02] MEDS: Bisacodyl 10 MG SUPP PR SCH (09:58)
[2019-04-02] MEDS: Enoxaparin Sodium 30 MG/0.3 ML SYRINGE SC SCH (09:59)
[2019-04-02 20:25] VITALS: BP 122/78; TEMP 98.4
[2019-04-02] MEDS ORDERED: Aspirin 81 mg Enteric Coated Tablet PO SCH (21:00)
--- NOTE | 2019-04-03 01:13 | DIS ---
DATE OF ADMISSION: 03/24/2019 DATE OF DISCHARGE: 04/02/2019 ADMISSION DIAGNOSES: 1. Status post fall from a tree. 2. L1 burst fracture. 3. Left humeral neck fracture. DISCHARGE DIAGNOSES: 1. Status post fall from a tree. 2. L1 burst fracture, nonoperative with TLSO brace at on time. 3. Left humeral neck fracture, status post humeral head replacement. 4. Acute traumatic pain, improved. CONSULTING SURGEONS: 1. Axel Pelletier MD. 2. Ritchie Gillespie MD. 3. Tam Good MD, neurosurgeon. PROCEDURE PERFORMED: Left humerus joint replacement. HOSPITAL COURSE: Mr. Mccauley is a 39-year-old male status post fall from a tree approximately 15 feet high. He sustained L1 burst fracture and left femoral neck fracture. He underwent left shoulder replacement with Orthopedic postop day # 7. He has L1 burst fracture treated conservatively with TLSO brace at on time per Neurosurgery. Postop, the patient had been doing good. Pain is getting better over time. He has regained his function. He tolerated with his regular diet. He is ambulating well. He walks around the floor and use restroom independently. He developed no fever or shortness of breath. Urination is adequate and his bowel regimen is normal. Because his insurance is unfounded, he has no option to go to rehabilitation facility. PHYSICAL EXAMINATION: GENERAL: The patient lying down in bed comfortable with no acute distress. VITAL SIGNS: Temperature 99, heart rate 85, respiratory rate 18, O2 saturation 96% on room air, and blood pressure 120/70. LUNGS: Clear bilaterally. HEART: Regular rate and rhythm. ABDOMEN: Soft, nondistended. EXTREMITIES: Neurovascularly intact x4. Left upper extremity is on sling. NEUROLOGIC: No focal neurology deficits. DISCHARGE CONDITION: Satisfactory. DISCHARGE DISPOSITION: Home. DISCHARGE INSTRUCTIONS: The patient is to take medication as directed. The patient is to have instruction to wear braces at on time, he can take off TLSO braces while lying down flat in bed. The patient is to have instruction on how to wear left arm sling. The patient is instructed to walk regularly every day. FOLLOWUP: The patient will follow up with Neurosurgery in 1 week. The patient will follow up with Orthopedic in 10 days. The patient is to follow up with Dr. Gonzáles as needed. DISCHARGE MEDICATIONS: 1. [place]. 2. Tramadol p.r.n. 3. Ibuprofen. 4. Tylenol. 5. Aspirin 81 mg b.i.d. for DVT prophylaxis. Job ID: [id number] [facility]OR[facility]
== END 2019-04-02 20:19 | disposition home or self-care (01) | DRG 483 ==
LOC: ERS 20:45 → IMCU/EMU 22:53 → SURG A 03-26 13:06
PROVIDERS: ADMIT Specialist; ATTEND Specialist
PROC: 0PDD0ZZ Extraction of Left Humeral Head, Open Approach (ICD-10-PCS; 2019-03-26)
PROC: 0RRK0J6 Replacement of Left Shoulder Joint with Synthetic Substitute, Humeral Surface, Open Approach (ICD-10-PCS; principal; 2019-03-28)
DX: S42.292A Other displaced fracture of upper end of left humerus, initial encounter for closed fracture (principal); S32.011A Stable burst fracture of first lumbar vertebra, initial encounter for closed fracture; E87.1 Hypo-osmolality and hyponatremia; E87.6 Hypokalemia; E83.39 Other disorders of phosphorus metabolism; Z98.890 Other specified postprocedural states; W14.XXXA Fall from tree, initial encounter
CPT/HCPCS: 36415; 36416; 70450; 71260; 72125; 74177; 76000; 80048; 80053; 83735; 84100; 85025; 85610; 85730; 86850; 86900; 86901; 90471; 90715; 96361; 96374; 96375; G0390; J0131; J0360; J0670; J0690; J1100; J1650; J1885; J2001; J2250; J2270; J2370; J2405; J2550; J2704; J2795; J3010; J3370; J3490; J7050; L0639; P9047; Q9966; S0028

== ENCOUNTER 2019-04-29 13:01 | Outpatient (CLI) | payer SELFPAY ==
--- NOTE | 2019-04-29 14:04 | RAD ---
2 VIEWS LUMBOSACRAL SPINE: Date: 04/29/19 COMPARISON: CT dated 03/24/19. HISTORY: Fall from tree with burst fracture of L1. FINDINGS: 2 views of lumbosacral spine shows a compression/burst fracture of the L1 vertebral body with approxi mately 60% height loss. This appears to have slightly worsened when compared to the prior CT. The dinesh tebral bodies demonstrate normal alignment without subluxation. The other vertebral bodies show no ev idence of fracture. IMPRESSION: L1 burst/compression fracture. POS: BRAVO
== END 2019-04-29 13:02 | disposition home or self-care (01) ==
LOC: TBSIIMAG 13:01
PROVIDERS: ATTEND Neurological Surgery
DX: S32.011A Stable burst fracture of first lumbar vertebra, initial encounter for closed fracture (principal)
CPT/HCPCS: 72100

== ENCOUNTER 2019-06-03 13:10 | Outpatient (CLI) | payer OTHER ==
--- NOTE | 2019-06-03 14:07 | RAD ---
XR Lumbar Spine 2 Or 3 View History: Burst fracture Comparison: Radiograph April 2019 Findings: Similar appearance of the L1 incomplete burst fracture. No further height loss. Minimal ret ropulsion. No new acute superimposed fracture. Impression: No significant further height loss of the L1 incomplete burst fracture.
== END 2019-06-03 13:11 | disposition home or self-care (01) ==
LOC: TBSIIMAG 13:10
PROVIDERS: ATTEND Neurological Surgery
DX: S32.001A Stable burst fracture of unspecified lumbar vertebra, initial encounter for closed fracture (principal)
CPT/HCPCS: 72100

== ENCOUNTER 2019-07-03 07:45 | Outpatient (CLI) | payer OTHER ==
--- NOTE | 2019-07-03 08:32 | RAD ---
LUMBAR SPINE 2 VIEWS: Date: 07/03/19 HISTORY: Lumbothoracic fracture. COMPARISON: 06/03/19. FINDINGS: Again noted is a burst-type fracture of L1 with greater than 50% vertical height loss anteriorly. IMPRESSION: Overall stable burst fracture with greater than 50% vertical height loss of L1. POS: [facility]
== END 2019-07-03 07:46 | disposition home or self-care (01) ==
LOC: BICRAD 07:45
PROVIDERS: ATTEND Neurological Surgery
DX: S22.009A Unspecified fracture of unspecified thoracic vertebra, initial encounter for closed fracture (principal); S32.011A Stable burst fracture of first lumbar vertebra, initial encounter for closed fracture
CPT/HCPCS: 72100

== ENCOUNTER 2019-08-05 13:26 | Outpatient (CLI) | payer OTHER ==
--- NOTE | 2019-08-05 13:46 | RAD ---
EXAM: XR Lumbar Spine 2 Or 3 View PROVIDED CLINICAL HISTORY: Follow-up compression fracture lumbar spine. COMPARISON: 07/03/2019 FINDINGS: Again noted is a burst fracture involving the L1 vertebral body. Degree of height loss is overall sim ilar to the prior study, and there is stable exaggerated kyphosis of the thoracolumbar junction at this level. The remaining vertebral body heights as well as the intervertebral disc spaces are within normal limits. There is narrowing of the T12-L1 intervertebral disc space. No additional fracture or subluxation is identified. IMPRESSION: Stable degree of height loss involving the burst fracture L1 vertebral body.
== END 2019-08-05 13:27 | disposition home or self-care (01) ==
LOC: TBSIIMAG 13:26
PROVIDERS: ATTEND Neurological Surgery
DX: M48.56XA Collapsed vertebra, not elsewhere classified, lumbar region, initial encounter for fracture (principal)
CPT/HCPCS: 72100

== ENCOUNTER 2019-12-28 17:13 | Emergency (ER) | payer OTHER ==
[2019-12-28 17:39] LABS: #Basophils 0.1 thou/uL (0.0-0.2); #Eosinphils 0.2 thou/uL (0.0-0.7); #Lymphocytes 2.3 thou/uL (1.20-3.40); #Monocytes 0.6 thou/uL (0.11-0.59); #Neutrophils 7.5 thou/uL (1.40-6.50); %Basophils 0.8 % (0.0-1.0); %Eosinophils 1.8 % (0.0-10.0); %Lymphocytes 21.6 % (21.0-51.0); %Monocytes 5.6 % (0.0-10.0); %Neutrophils 70.3 % (42.0-75.0); Hemoglobin 15.3 g/dL (14.0-18.0); Mean Corpuscular HGB CONC 35.1 g/dL (32.0-36.0); Mean Corpuscular Hemoglobin 29.9 pg (27.0-31.0); Mean Corpuscular Volume 85.2 fL (78.0-98.0); Platelet Count 334 thou/uL (130-400); RBC Distribution Width 11.6 % (11.5-14.5); Red Blood Cell (RBC) Count 5.13 mill/uL (4.70-6.10); White Blood Cell (WBC) Count 10.7 thou/uL (4.8-10.8)
--- NOTE | 2019-12-28 17:58 | RAD ---
RADIOGRAPH CHEST 1 VIEW: DATE: 12/28/2019 HISTORY: 39-year-old female with chest pain FINDINGS: There are no airspace densities, pulmonary edema, pneumothorax, or cardiomegaly. The lateral costophr enic angles are sharp. IMPRESSION: No acute cardiopulmonary findings.
[2019-12-28 18:02] LABS: ALT (SGPT) 16 U/L (8-55); AST (SGOT) 17 U/L (5-34); Albumin 4.8 g/dL (3.5-5.0); Alkaline Phosphatase 90 U/L (40-110); Anion Gap 14 mmol/L (10-20); BUN (Urea Nitrogen) 14 mg/dL (8.9-20.6); Bilirubin, Total 0.3 mg/dL (0.2-1.2); Calc. Creatinine Clearance 0 mL/min (70-130); Calcium 9.1 mg/dL (7.8-10.44); Carbon Dioxide 24 mmol/L (22-29); Chloride 104 mmol/L (98-107); Estimated GFR-MDRD Greater than 90; Globulin 3.1 g/dL (2.4-3.5); Glucose 139 mg/dL (70-105); Potassium 3.5 mmol/L (3.5-5.1); Protein, Total 7.9 g/dL (6.0-8.3); Sodium 138 mmol/L (136-145)
[2019-12-28] MEDS ORDERED: Ketorolac Tromethamine 30 MG/ML VIAL ONE (20:59)
--- NOTE | 2020-01-03 13:03 | EKG ---
Test Reason : CHEST PAIN Blood Pressure : / mmHG Vent. Rate : 072 BPM Atrial Rate : 072 BPM P-R Int : 148 ms QRS Dur : 112 ms QT Int : 388 ms P-R-T Axes : -17 -25 004 degrees QTc Int : 424 ms Normal sinus rhythm Incomplete right bundle branch block Minimal voltage criteria for LVH, may be normal variant Borderline ECG Confirmed by RONIT SALDAÑA DO ([id number]), writer editor EVER ROTHMAN ([id number] on 01/03/2020 1:02:36 PM Referred By: Confirmed By:RONIT SALDAÑA DO
== END 2019-12-28 21:12 | disposition home or self-care (01) ==
LOC: ERS 17:13
DX: R07.89 Other chest pain (principal)
CPT/HCPCS: 36415; 71045; 80053; 84484; 85025; 93005; 94760; 96374; J1885

== ENCOUNTER 2021-01-20 17:19 | Emergency (ER) | payer OTHER, SELFPAY ==
[2021-01-20] MEDS ORDERED: Proparacaine 0.5% Opth 15 ML BOT ONE (18:11)
[2021-01-20] MEDS ORDERED: Fluorescein Opthalmic Strip ONE (18:11)
== END 2021-01-20 19:00 | disposition home or self-care (01) ==
LOC: ERS 17:19
DX: S05.02XA Injury of conjunctiva and corneal abrasion without foreign body, left eye, initial encounter (principal); H00.016 Hordeolum externum left eye, unspecified eyelid; X58.XXXA Exposure to other specified factors, initial encounter
CPT/HCPCS: 99283